=== PATIENT | male | born 1990 | race African-American/Black ===

== ENCOUNTER 2024-01-03 22:24 | Emergency (ER) | payer OTHER, SELFPAY ==
[2024-01-03 22:31] VITALS: BP 144/74; PULSE 87; TEMP 36.9; O2SAT 98; BMI 47.5
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
[2024-01-03] MEDS: ORPHENADRINE 60 MG/ 2 ML VIAL IM (23:19)
[2024-01-03] MEDS: KETOROLAC TROMETHAMINE 60 MG/2 ML VIAL IM (23:20)
[2024-01-04 00:23] LABS: Bilirubin Urine NEGATIVE (NEGATIVE); Blood Urine SMALL (NEGATIVE); Clarity Urine CLEAR (CLEAR); Color Urine YELLOW (YELLOW); Glucose Urine UA NEGATIVE (NEGATIVE); Ketones Urine NEGATIVE (NEGATIVE); Leukocyte Esterase Urine NEGATIVE (NEGATIVE); Nitrite Urine NEGATIVE (NEGATIVE); Protein Urine TRACE mg/dL (NEG/TRACE); Specific Gravity Urine 1.025 (1.005-1.025)
[2024-01-04 00:32] LABS: Bacteria Urine NONE SEEN #/HPF (NONE SEEN); Cast Seen? NONE SEEN #/LPF (NONE SEEN); Crystals Seen? None Seen #/HPF (None Seen); Mucus Urine NONE SEEN (NONE SEEN); RBC Urine 0-2 #/HPF (0-2); Squamous Epithelial Cell Urine RARE #/LPF (NONE/RARE); WBC Urine 0-2 #/HPF (NONE SEEN)
[2024-01-04] MEDS: ONDANSETRON 4 MG RAPDIS TABLET SL (00:59)
[2024-01-04] MEDS: HYDROCODONE/ACET 5-325 MG TABLET 2 TAB PO (00:59)
[2024-01-04 01:03] VITALS: BP 144/89; PULSE 83; O2SAT 100
== END 2024-01-04 01:06 | disposition home or self-care (01) ==
PROVIDERS: Emergency Provider Emergency Medicine
DX: S39.012A Strain of muscle, fascia and tendon of lower back, initial encounter (principal); S16.1XXA Strain of muscle, fascia and tendon at neck level, initial encounter; V53.5XXA Driver of pick-up truck or van injured in collision with car, pick-up truck or van in traffic accident, initial encounter
CPT/HCPCS: 72125; 72131; 81001; 96372; 99284

== ENCOUNTER 2025-01-04 11:32 | Outpatient (OUT) | payer MEDICAID, SELFPAY ==
[2025-01-04 12:21] LABS: Alanine Aminotransferase 25 U/L (16-63); Albumin Level 3.9 g/dL (3.4-5.0); Alkaline Phosphatase 102 U/L (46-116); Anion Gap 9.5; Aspartate Amino Transferase 10 U/L (15-37); BUN Creatinine Ratio 10.3; Bilirubin Total 0.5 mg/dL (0.2-1.0); Calcium 9.2 mg/dL (8.5-10.1); Carbon Dioxide 27.8 mmol/L (21.0-32.0); Chloride 104 mmol/L (98-107); Estimated GFR (African America >60 (>=60 mL/min/1.73m^2); Estimated GFR (Non-African Ame >60 (>=60 mL/min/1.73m^2); Globulin 4.1 g/dL; Glucose 159 mg/dL (74-106); Potassium 4.3 mmol/L (3.5-5.1); Sodium 137 mmol/L (136-145)
== END 2025-01-04 11:33 | disposition home or self-care (01) ==
DX: E78.5 Hyperlipidemia, unspecified (principal); E66.9 Obesity, unspecified; E11.9 Type 2 diabetes mellitus without complications
CPT/HCPCS: 36415; 80053